=== PATIENT | male | born 1975 | race Caucasian/White ===

== ENCOUNTER 2022-04-01 16:07 | Observation (INO) ==
[2022-04-01] MEDS ORDERED: NS 1,000 ML IV 1,000 ML IV ONE (16:32)
[2022-04-01] MEDS ORDERED: ZOFRAN INJ 4 MG VIAL IVP ONE ×2 (16:32→17:58)
[2022-04-01] MEDS ORDERED: TORADOL 30 MG VIAL IVP ONE (16:32)
[2022-04-01] MEDS ORDERED: TORADOL 30 MG VIAL ONE (16:39)
[2022-04-01] MEDS ORDERED: ZOFRAN INJ 4 MG VIAL ONE ×2 (16:39→18:00)
[2022-04-01] MEDS ORDERED: NS 1,000 ML IV 1,000 ML ONE ×2 (16:39→19:05)
--- NOTE | 2022-04-01 16:41 | DR.CP ---
HPI Time Seen Time Seen by Provider: 04/01/22 16:24 PCP Primary Care Physician: [facility] Complaint Chief Complaint Doctor Comments: 46 y/o male sent over from his medical provider's office for evaluation. Has been having chest pain over the past 2 days. Had sudden onset of illness, after working outside in the heat dogs. + sharp chest pain, across chest, radiates down left arm, into back. + worse with movement. Nothing makes it better. Has had associated nausea, vomiting, diarrhea, low grade fever. Has been feeling short of breath. No h/o CAD, had a cardiac cath 3 years ago, small hole in heart, but coronary arteries reportedly clean. Chief Complaint:: PT C/O SUDDEN ONSET OF CONSTANT SHARP STABBING SUBSTERNAL CHEST PAIN RADIATING INTO THE LEFT NECK, JAW, SHOULDER AND DOWN THE LEFT ARM. PT ALSO C/O NAUSEA, VOMITING, DIARRHEA, AND SOB. COVID-19 Coronavirus risk:travel/contact w/high risk person: No Has patient experienced Coronavirus symptoms: No Reviewed Nurses Notes Review: Yes Source History Provided: Patient Mode of Arrival Mode of Arrival: Ambulatory Timing Onset of Chief Complaint: 04/01/22 Location Chest Pain Radiation Location: Left Jaw, Left Arm, Left Shoulder and Neck Associated Signs and Symptoms Associated Signs and Symptoms: Shortness of Breath and Nausea/Vomiting PMH PMH Past Medical History: Yes Past Medical History: Depression, Dyslipidemia, GERD and Hypertension Past Surgical History: Yes Surgical History: Cholecystectomy and Ortho Surgery Family History History of Family Medical Conditions: No Social History Does patient currently use any type of tobacco product: Yes Have you used tobacco products in the last 12 months: Yes Type of Tobacco Use: Cigarettes Does any household member use tobacco: No Alcohol Use: None Do you use any recreational Drugs:: No Lives With: Family Lives Where: Home Travel Risk Coronavirus risk:travel/contact w/high risk person: No Has patient experienced Coronavirus symptoms: No Infectious screening In the last 2 months have you had wt loss of >10#?: NO Have you had fever, night sweats or hemotysis?: No Have you traveled outside the country in the last 6 months?: No Isolation: Standard ROS Review of Systems Constitutional: Fever and Weakness Eyes: No Symptoms Reported ENTM: No Symptoms Reported Respiratoy: Short of Breath Cardiovascular: Chest Pain Gastrointestinal/Abdominal: Diarrhea, Nausea and Vomiting Genitourinary: No Symptoms Reported Neurological: Weakness Musculoskeletal: Back Pain and Muscle Pain Integumentary: No Symptoms Reported Hematologic/Lymphatic: No Symptoms Reported Psychiatric: No Symptoms Reported All Other Systems: Reviewed and Negative PE Vitals Vitals: Temperature 98.1 F Pulse Rate 76 Respiratory Rate 19 Blood Pressure 136/71 O2 Sat by Pulse Oximetry 96 General Limitations: No Limitations General Appearance: Alert and In No Apparent Distress Head Head Exam: Normal Inspection Eyes Eye exam: PERRL and EOMI ENT ENT Exam: Mucous Membranes Moist Chest Chest Inspection: Tenderness (Right anterior chest wall tenderness.) Respiratory Respiratory Exam: Normal Lung Sounds Bilat; negative Accessory Muscle Use and Respiratory Distress Respiratory Exam: Bilateral: Clear to Auscultation Cardiovascular Cardiovascular Exam: Regular Rate, Normal Rhythm and Normal Heart Sounds Abdominal Exam Abdominal Exam: Normal Bowel Sounds and Soft; negative Tenderness Extremities Extremities Exam: Normal Inspection and Full ROM; negative Tenderness and Edema Back Back Exam: Normal Inspection Neurologic Neurological Exam: Alert, Oriented X3 and CN II-XII Intact; negative Motor Sensory Deficit Psychiatric Psychiatric Exam: Normal Affect Skin Skin Exam: Warm and Dry MDM Differential Diagnosis Differential Diagnosis: Angina, Chest Wall Pain (heat exhaustion, rhabdomyolysis), Costochondritis, Esophageal Reflux/Spasm, Myocardial Infarction and Pulmonary Embolus COURSE Treatment Treatment: 46 y/o male with illness x 2 days. Having chest/back pain, with N/V/D. Started while working in the heat. W/u initiated. Given IV fluids, IV toradol/zofran. 1800 - labs overall acceptable (potassium slightly low at 3.1). EKG/CXR both acceptable. No evidence for CAD. 1814 - Pt with return of nausea, given additional IV zofran, PO carafate, and IV protonix. Discussed w/u with pt. Essentially negative for worrisome pathology. Pt concerned, requesting observation admission. 1853 - Discussed with Dr Rosado. Will admit for obrsevation for chest pain, vomiting. ROR Labs Reviewed Laboratory Results Reviewed?: Yes Result Diagrams: 04/01/22 16:25 04/01/22 16:25 Laboratory: WBC 14.1 X10^3/uL (3.6-10.0) H 04/01/22 16:25 RBC 5.53 X10^6/uL (4.7-6.0) 04/01/22 16:25 Hgb 15.7 g/dL (13.5-18.0) 04/01/22 16:25 Hct 46.9 % (42.0-54.0) 04/01/22 16:25 MCV 84.9 fL (80.0-100.0) 04/01/22 16:25 MCH 28.4 pg (27.0-34.0) 04/01/22 16:25 MCHC 33.5 g/dL (33.0-35.0) 04/01/22 16:25 RDW 13.8 % (11.6-16.5) 04/01/22 16:25 Plt Count 265 X10^3/uL (150.0-450.0) 04/01/22 16:25 MPV 10.5 fL (7.4-11.0) 04/01/22 16:25 Neut % (Auto) 81.9 % (42.0-75.0) H 04/01/22 16:25 Lymph % (Auto) 10.7 % (21.0-51.0) L 04/01/22 16:25 [place] % (Auto) 6.6 % (0.0-13.0) 04/01/22 16:25 Eos % (Auto) 0.1 % (0.9-2.9) L 04/01/22 16:25 Baso % (Auto) 0.7 % (0.2-1.0) 04/01/22 16:25 Neut # (Auto) 11.5 x10^3/uL (2.2-4.8) H 04/01/22 16:25 Lymph # (Auto) 1.5 X10^3/uL (1.3-2.9) 04/01/22 16:25 [place] # (Auto) 0.9 x10^3/uL (0.3-0.8) H 04/01/22 16:25 Eos # (Auto) 0.0 x10^3/uL (0.0-0.2) 04/01/22 16:25 Baso # (Auto) 0.1 X10^3/uL (0.0-0.1) 04/01/22 16:25 Absolute Nucleated RBC 0.1 /100WBC 04/01/22 16:25 Sodium 136 mmol/L (136-145) 04/01/22 16:25 Corrected Sodium TNP 04/01/22 16:25 Potassium 3.1 mmol/L (3.5-5.1) L 04/01/22 16:25 Chloride 97 mmol/L (98-107) L 04/01/22 16:25 Carbon Dioxide 29.5 mmol/L (21-32) 04/01/22 16:25 BUN 24 mg/dL (7-18) H 04/01/22 16:25 Creatinine 1.34 mg/dL (0.70-1.30) H 04/01/22 16:25 Est GFR (MDRD) Af Amer > 60 (>60) 04/01/22 16:25 Est GFR (MDRD) Non-Af > 60 (>60) 04/01/22 16:25 Glucose 103 mg/dL (65-99) H 04/01/22 16:25 Calcium 9.3 mg/dL (8.5-10.1) 04/01/22 16:25 Corrected Calcium TNP 04/01/22 16:25 Total Bilirubin 0.50 mg/dL (0.2-1.0) 04/01/22 16:25 AST 15 Units/L (15-37) 04/01/22 16:25 ALT 18 Units/L (12-78) 04/01/22 16:25 Alkaline Phosphatase 95 Units/L (46-116) 04/01/22 16:25 Creatine Kinase 146 Units/L (39-308) 04/01/22 16:25 CK-MB (CK-2) 1.7 ng/mL (0-4.0) 04/01/22 16:25 CK/CKMB % Calc 1.2 % (<4) 04/01/22 16:25 Troponin I High Sens 4.0 ng/L (4.0-60.0) 04/01/22 16:25 Total Protein 8.1 g/dL (6.4-8.2) 04/01/22 16:25 Albumin 4.2 g/dL (3.4-5.0) 04/01/22 16:25 Globulin 3.9 g/dL (2.5-4.5) 04/01/22 16:25 Albumin/Globulin Ratio 1.1 Ratio (1.1-2.1) 04/01/22 16:25 Lipase 91 Units/L (73-393) 04/01/22 16:25 EKG Rate: 85 [place]: Normal Rhythm: NSR Block: None Hypertrophy: None ST: Normal Opioid Opioid Risk Tool Age (Jj box if 16-45): No History of Preadolescent Sexual Abuse: No Total: 0 Total Score Risk Category: Low Risk Copyright: Isidro LEE predicting aberrant behaviors Diagnosis Discharge Problem: Chest pain Qualifiers: Chest pain type: unspecified Qualified Code(s): R07.9 - Chest pain, unspecified Narrative Support Text: Vomiting
[2022-04-01 16:42] LABS: BASOPHILS # (AUTO) 0.1 X10^3/uL (0.0-0.1); BASOPHILS % (AUTO) 0.7 % (0.2-1.0); EOSINOPHILS % (AUTO) 0.1 % (0.9-2.9); HEMATOCRIT 46.9 % (42.0-54.0); HEMOGLOBIN 15.7 g/dL (13.5-18.0); LYMPHOCYTES # (AUTO) 1.5 X10^3/uL (1.3-2.9); LYMPHOCYTES % (AUTO) 10.7 % (21.0-51.0); MEAN CORPUSCULAR HEMOGLOBIN 28.4 pg (27.0-34.0); MEAN CORPUSCULAR HGB CONC 33.5 g/dL (33.0-35.0); MEAN CORPUSCULAR VOLUME 84.9 fL (80.0-100.0); MEAN PLATELET VOLUME 10.5 fL (7.4-11.0); MONOCYTES # (AUTO) 0.9 x10^3/uL (0.3-0.8); MONOCYTES % (AUTO) 6.6 % (0.0-13.0); NEUTROPHILS # (AUTO) 11.5 x10^3/uL (2.2-4.8); NEUTROPHILS % (AUTO) 81.9 % (42.0-75.0); RED BLOOD COUNT 5.53 X10^6/uL (4.7-6.0); RED CELL DISTRIBUTION WIDTH 13.8 % (11.6-16.5); WHITE BLOOD COUNT 14.1 X10^3/uL (3.6-10.0)
[2022-04-01 17:06] LABS: ALANINE AMINOTRANSFERASE 18 Units/L (12-78); ALBUMIN 4.2 g/dL (3.4-5.0); ALKALINE PHOSPHATASE 95 Units/L (46-116); ASPARTATE AMINO TRANSFERASE 15 Units/L (15-37); BLOOD UREA NITROGEN 24 mg/dL (7-18); CALCIUM 9.3 mg/dL (8.5-10.1); CARBON DIOXIDE 29.5 mmol/L (21-32); CHLORIDE 97 mmol/L (98-107); CKMB % 1.2 % (<4); CREATINE KINASE 146 Units/L (39-308); CREATINE KINASE MB 1.7 ng/mL (0-4.0); CREATININE 1.34 mg/dL (0.70-1.30); LIPASE 91 Units/L (73-393); SODIUM 136 mmol/L (136-145); TOTAL PROTEIN 8.1 g/dL (6.4-8.2); eGFR NON BLACK RACES > 60 (>60)
[2022-04-01] MEDS ORDERED: PROTONIX INJ 40 MG VIAL IVP ONE (17:58)
[2022-04-01] MEDS ORDERED: CARAFATE ORAL SUSP PO ONE ×2 (17:59→18:00)
[2022-04-01] MEDS ORDERED: PROTONIX INJ 40 MG VIAL ONE (18:00)
--- NOTE | 2022-04-01 18:30 | RAD ---
HISTORYSUDDEN ONSET OF CONSTANT SHARP STABBING SUBSTERNAL CHEST PAIN RADIATING INTO THE LEFT NECK, JAW, SHOULDER AND DOWN THE LEFT ARM. C/O N/V/D, AND SOB. Relevant Clinical InformationSTUDYCHEST, 1 VIEWCOMPARISONFINDINGSThe trachea is midline. The cardiac silhouette is unremarkable. The lungs are clear without focal infiltrate or effusion. The bony thorax is unremarkable.IMPRESSIONNo acute cardiopulmonary findings .Electronically signed by: Skyler Odonnell (April 01, 2022 18:28:24)
[2022-04-01] MEDS ORDERED: K-RIDER 10 MEQ/NS 100 ML 10 MEQ/100 ML BAG IV ONE ×2 (18:55→19:05)
[2022-04-01] MEDS: NS 1,000 ML IV 1,000 ML IV SCH (19:16)
[2022-04-01] MEDS ORDERED: IMODIUM CAP 2 MG PO PRN (21:06)
[2022-04-01] MEDS ORDERED: ZOFRAN INJ 4 MG VIAL IVP PRN (21:06)
[2022-04-01] MEDS ORDERED: TORADOL 15 MG VIAL IVP PRN (21:06)
[2022-04-01] MEDS: K-DUR TAB 20 MEQ PO SCH (21:56)
[2022-04-01 22:18] LABS: CKMB % 0.9 % (<4); CREATINE KINASE MB 1.6 ng/mL (0-4.0)
[2022-04-01 22:24] VITALS: BMI 34.3
[2022-04-02 03:28] LABS: BASOPHILS # (AUTO) 0.1 X10^3/uL (0.0-0.1); BASOPHILS % (AUTO) 0.9 % (0.2-1.0); EOSINOPHILS # (AUTO) 0.1 x10^3/uL (0.0-0.2); EOSINOPHILS % (AUTO) 0.8 % (0.9-2.9); HEMATOCRIT 44.8 % (42.0-54.0); HEMOGLOBIN 14.9 g/dL (13.5-18.0); LYMPHOCYTES # (AUTO) 1.5 X10^3/uL (1.3-2.9); LYMPHOCYTES % (AUTO) 17.5 % (21.0-51.0); MEAN CORPUSCULAR HEMOGLOBIN 28.6 pg (27.0-34.0); MEAN CORPUSCULAR HGB CONC 33.3 g/dL (33.0-35.0); MEAN CORPUSCULAR VOLUME 86.1 fL (80.0-100.0); MEAN PLATELET VOLUME 10.1 fL (7.4-11.0); MONOCYTES # (AUTO) 0.6 x10^3/uL (0.3-0.8); MONOCYTES % (AUTO) 7.3 % (0.0-13.0); NEUTROPHILS # (AUTO) 6.5 x10^3/uL (2.2-4.8); NEUTROPHILS % (AUTO) 73.5 % (42.0-75.0); RED BLOOD COUNT 5.21 X10^6/uL (4.7-6.0); WHITE BLOOD COUNT 8.8 X10^3/uL (3.6-10.0)
[2022-04-02 03:46] LABS: ALANINE AMINOTRANSFERASE 17 Units/L (12-78); ALBUMIN 3.5 g/dL (3.4-5.0); ALKALINE PHOSPHATASE 84 Units/L (46-116); ASPARTATE AMINO TRANSFERASE 21 Units/L (15-37); BLOOD UREA NITROGEN 24 mg/dL (7-18); CALCIUM 8.3 mg/dL (8.5-10.1); CARBON DIOXIDE 30.4 mmol/L (21-32); CHLORIDE 101 mmol/L (98-107); CHOL/HDL RATIO 3.7 (0.0-5.0); CHOLESTEROL 145 mg/dL (0-200); CREATINE KINASE 144 Units/L (39-308); CREATINE KINASE MB 1.4 ng/mL (0-4.0); CREATININE 1.13 mg/dL (0.70-1.30); HDL CHOLESTEROL 39 mg/dL (40-60); SODIUM 138 mmol/L (136-145); TOTAL PROTEIN 7.1 g/dL (6.4-8.2); TRIGLYCERIDES 94 mg/dL (0-150); eGFR NON BLACK RACES > 60 (>60)
[2022-04-02] MEDS: NS 1,000 ML IV 1,000 ML IV SCH ×5 (04:17→23:05)
[2022-04-02] MEDS ORDERED: KLOR-CON PO PRN (04:18)
[2022-04-02] MEDS ORDERED: POTASSIUM CHLORIDE LIQ 20 MEQ UDC PO PRN (04:18)
[2022-04-02] MEDS ORDERED: POTASSIUM CHL 60 MEQ/NS 0.45% 500 ML IV PRN (04:18)
[2022-04-02] MEDS ORDERED: MICRO K EXTEN CAP 10 MEQ PO PRN (04:18)
[2022-04-02] MEDS ORDERED: K-RIDER 10 MEQ/NS 100 ML 10 MEQ/100 ML BAG IV PRN (04:18)
[2022-04-02] MEDS ORDERED: POTASSIUM CHL 40 MEQ/NS 0.45% 500 ML IV PRN (04:18)
[2022-04-02 05:38] LABS: BASOPHILS % (MANUAL) 1 % (0-1)
[2022-04-02 05:39] LABS: GIANT PLATELET RARE; PLATELET MORPHOLOGY COMMENT ABNORMAL (NORMAL); STOMATOCYTES PRESENT
[2022-04-02] MEDS: K-DUR TAB 20 MEQ PO PRN (07:44)
[2022-04-02] MEDS: K-DUR TAB 20 MEQ PO SCH ×2 (08:05→21:34)
[2022-04-02] MEDS ORDERED: ZESTRIL TAB 20 MG ONE (08:25)
[2022-04-02] MEDS ORDERED: ZOLOFT ONE (08:26)
[2022-04-02] MEDS: PriLOSEC PO SCH (08:28)
[2022-04-02] MEDS: PRAVACHOL PO SCH (08:28)
[2022-04-02] MEDS: HYDROCHLOROTHIAZIDE 12.5 MG CAP PO SCH (08:29)
[2022-04-02] MEDS: ZESTRIL TAB 20 MG PO SCH (08:29)
[2022-04-02] MEDS: DESYREL PO SCH (08:30)
[2022-04-02] MEDS: ZOLOFT PO SCH (08:30)
[2022-04-02] MEDS: LAMICTAL TAB 100 MG PO SCH (08:30)
[2022-04-02] MEDS ORDERED: TORADOL 15 MG VIAL IVP ONE (12:20)
[2022-04-02 12:29] LABS: CKMB % 1.3 % (<4); CREATINE KINASE MB 1.2 ng/mL (0-4.0)
--- NOTE | 2022-04-02 13:37 | DR.CARD ---
Cardiology Consult Consultation for Day of: Date: 04/02/22 Chief Complaint Chief Complaint: Chest pain Allergies Allergies Allergy/AdvReac Type Severity Reaction Status Date / Time codeine Allergy Verified 04/01/22 16:07 History of Present Illness History of Present Illness: Patient presented to hospital with chest pain. Described pain as sharp and lasting for two days. He noticed pain after having 2-3 days of NVD and mild fevers. Not worse with exertion. Reproducible with pressing. Denies cardiac history. PMHx includes obesity, htn, hld, and "borderline DM2." Intermittently has had sharp chest pain during hospital stay, worse with pressing and still sharp in nature. While inpatient, reports nausea and vomiting have improved. still has mild watery diarrhea. no abdominal pain, no fevers. Past Medical History Past Medical History: Depression, Dyslipidemia, GERD and Hypertension Past Surgical History Surgical History: Cholecystectomy and Other Family History Family Medical History: denies Coronary Artery Disease Social History Does patient currently use any type of tobacco product: No (reports vaping x 1 month) Have you used tobacco products in the last 12 months: Yes Type of Tobacco Use: Cigarettes (only occasional use) Does any household member use tobacco: No Alcohol Use: None Drug Use: None Medications Home Medications: codeine Allergy (Verified 04/01/22 16:07) CONTINUE taking the following medications hydrochlorothiazide 12.5 mg PO DAILY 04/01/22 [History] lamotrigine 200 mg PO DAILY 04/01/22 [History] lisinopril 20 mg PO DAILY 04/01/22 [History] omeprazole 40 mg PO DAILY 04/01/22 [History] pravastatin 40 mg PO DAILY 04/01/22 [History] sertraline [Zoloft] 100 mg PO DAILY 04/01/22 [History] trazodone 100 mg PO DAILY 04/01/22 [History] Review of Systems Constitutional: No Symptoms Reported Eyes: No Symptoms Reported ENT: No Symptoms Reported Respiratory: No Symptoms Reported Cardiovascular: Chest Pain (sharp, reproducible with pressing) Gastrointestinal: See HPI and Diarrhea; denies Nausea, Vomiting, Abdominal Pain and Constipation Genitourinary: No Symptoms Reported Musculoskeletal: No Symptoms Reported Skin: No Symptoms Reported Neurological: No Symptoms Reported Physical Exam Vital Signs: Temperature 98.1 F Pulse Rate 69 Respiratory Rate 23 Blood Pressure 156/83 O2 Sat by Pulse Oximetry 95 Oriented: Normal Eyes: Normal Ear: Normal Nose: Normal Throat: Normal Respiratory: Clear Throughout Cardiovascular: Other (reproducible tenderness to palpation anterior and lateral chest); negative Murmur and Edema Auscultation: Bowel Sounds: Increased Palpation: Normal Tenderness: Normal Skin: Normal Musculoskeletal: Normal Psychiatric: Normal Mood Description: Calm Affect: Normal Speech Pattern: Appropriate Medical Decision Making Reason for Consult: Chest Pain EKG Results: Sinus Rhythm Labs reviewed: Yes Significant abnormal labs: mild hypokalemia on admission, improved Radiology Reviewed: Yes Plan Plan: 1. Chest pain -atypical -negative cardiac enzymes x 3 -ecg nonischemic/NSR -worse with pressing/coughing, sharp in nature -feel sx r/t costochondritis d/t 2-3 days of vomiting -FU in office outpatient 2. Costochrondritis -Rx 30mg toradol -May use NSAID PRN @ home 3. Hypokalemia -resolved inpatient 4. Gastroenteritis -improved, no further vomiting/mild diarrhea -continue appropriate hydration/nutrition at home
[2022-04-02 20:33] LABS: BILIRUBIN,URINE NEGATIVE (NEGATIVE); BLOOD/HEMOGLOBIN,URINE NEGATIVE (NEGATIVE); GLUCOSE, URINE NEGATIVE (NEGATIVE); KETONES,URINE NEGATIVE (NEGATIVE); LEUKOCYTE ESTERASE ,URINE NEGATIVE (NEGATIVE); NITRITES,URINE NEGATIVE (NEGATIVE); PROTEIN,URINE 1+ (NEGATIVE); UROBILINOGEN,URINE NORMAL (NORMAL)
[2022-04-02 20:54] LABS: APPEARANCE,URINE CLEAR (CLEAR); BACTERIA,URINE NEGATIVE /HPF (NEGATIVE); COLOR,URINE YELLOW (YELLOW); RBC,URINE 0-2 /HPF (0-3); SQUAMOUS EPITHELIAL CELL,UR RARE /HPF (NEGATIVE)
[2022-04-02 21:10] LABS: CRYPTOSPORIDIUM PARVUM ANTIGEN NEGATIVE (NEGATIVE); GIARDIA LAMBLIA ANTIGEN NEGATIVE (NEGATIVE)
[2022-04-03 04:42] LABS: BASOPHILS % (AUTO) 0.4 % (0.2-1.0); EOSINOPHILS # (AUTO) 0.1 x10^3/uL (0.0-0.2); EOSINOPHILS % (AUTO) 1.3 % (0.9-2.9); HEMATOCRIT 43.6 % (42.0-54.0); HEMOGLOBIN 14.4 g/dL (13.5-18.0); LYMPHOCYTES # (AUTO) 1.8 X10^3/uL (1.3-2.9); LYMPHOCYTES % (AUTO) 18.3 % (21.0-51.0); MEAN CORPUSCULAR HEMOGLOBIN 28.7 pg (27.0-34.0); MEAN CORPUSCULAR VOLUME 87.1 fL (80.0-100.0); MONOCYTES # (AUTO) 0.6 x10^3/uL (0.3-0.8); MONOCYTES % (AUTO) 5.9 % (0.0-13.0); NEUTROPHILS # (AUTO) 7.4 x10^3/uL (2.2-4.8); NEUTROPHILS % (AUTO) 74.1 % (42.0-75.0); RED BLOOD COUNT 5.01 X10^6/uL (4.7-6.0); RED CELL DISTRIBUTION WIDTH 14.3 % (11.6-16.5)
[2022-04-03 04:51] LABS: ALANINE AMINOTRANSFERASE 14 Units/L (12-78); ALBUMIN 3.4 g/dL (3.4-5.0); ALKALINE PHOSPHATASE 82 Units/L (46-116); ASPARTATE AMINO TRANSFERASE 12 Units/L (15-37); BLOOD UREA NITROGEN 14 mg/dL (7-18); CALCIUM 8.3 mg/dL (8.5-10.1); CHLORIDE 105 mmol/L (98-107); SODIUM 139 mmol/L (136-145); TOTAL PROTEIN 6.6 g/dL (6.4-8.2); eGFR NON BLACK RACES > 60 (>60)
[2022-04-03 09:22] VITALS: BP 105/60
[2022-04-03] MEDS ORDERED: ZESTRIL TAB 20 MG ONE (09:34)
[2022-04-03] MEDS ORDERED: ZOLOFT ONE (09:35)
[2022-04-03] MEDS: ZESTRIL TAB 20 MG PO SCH (09:42)
[2022-04-03] MEDS: DESYREL PO SCH (09:42)
[2022-04-03] MEDS: K-DUR TAB 20 MEQ PO PRN (09:43)
[2022-04-03] MEDS: K-DUR TAB 20 MEQ PO SCH (09:45)
[2022-04-03] MEDS: ZOLOFT PO SCH (09:46)
[2022-04-03] MEDS: PRAVACHOL PO SCH (09:46)
[2022-04-03] MEDS: LAMICTAL TAB 100 MG PO SCH (09:46)
[2022-04-03] MEDS: HYDROCHLOROTHIAZIDE 12.5 MG CAP PO SCH (09:47)
[2022-04-03] MEDS: PriLOSEC PO SCH (09:49)
== END 2022-04-03 11:20 | disposition home or self-care (01) ==
LOC: SUPCPDRO → MED/SURG 16:07 → ER 16:07 → MED/SURG 21:02
PROVIDERS: ADMIT Internal Medicine; ATTEND Internal Medicine